=== PATIENT | female | born 1960 | race Caucasian/White ===

== ENCOUNTER 2022-12-11 16:26 | Emergency (ER) | payer OTHER, SELFPAY ==
[2022-12-11 16:28] VITALS: BP 146/65; PULSE 57; RESP 16; TEMP 36.6; O2SAT 98; BMI 31.3
--- NOTE | 2022-12-11 16:33 | DI.RAD.S_ITS ---
PROCEDURE: XR SHOULDER RT MIN 2V INDICATIONS: pain after fall TECHNIQUE: Three views of the right shoulder. COMPARISON: None. FINDINGS: Bones: Comminuted fracture of the right humeral head and neck. Underlying degenerative changes of the glenohumeral joint. Soft tissues: No suspicious soft tissue calcifications. IMPRESSION: Comminuted fracture of the right humeral head and neck. Dictated by: Graeme Akins M.D. on 12/11/2022 at 16:31 Approved by: Graeme Akins M.D. on 12/11/2022 at 16:32
--- NOTE | 2022-12-11 16:33 | ED.GENADULT ---
HPI - General Adult General Chief complaint: Extremity Injury, Upper Stated complaint: GLF ON RIGHT SHOULDER Time Seen by Provider: 12/11/22 16:30 Source: patient Mode of arrival: Ambulatory Limitations: no limitations History of Present Illness HPI narrative: Patient is a 62-year-old female here for evaluation for right shoulder injury. Patient states that prior to arrival she tripped and fell and landed on an outstretched arm. States she jammed her right shoulder. She did not hit her head. No loss of consciousness. She reports no other discomfort except her right shoulder. Her right elbow and right wrist are unremarkable. No other injuries from the event. Related Data Previous Rx's Medication Instructions Recorded hydrocodone 5 mg-acetaminophen 325 1 tab PO Q6H PRN pain #20 tabs 12/11/22 mg tablet Review of Systems Constitutional Constitutional: Reports system reviewed and no additional complaints, except as documented Musculoskeletal Musculoskeletal: Reports system reviewed and no additional complaints, except as documented Integumentary/Breasts Skin/Breast: Reports system reviewed and no additional complaints, except as documented Neurologic Neurologic: Reports system reviewed and no additional complaints, except as documented Hematologic/Lymphatic On Anticoagulants: No Patient History Social History Smoking Status: Never smoker Exam Initial Vital Signs Initial Vital Signs: Vital Signs Temperature 97.9 F 12/11/22 16:28 Pulse Rate 57 L 12/11/22 16:28 Respiratory Rate 16 12/11/22 16:28 Blood Pressure 146/65 H 12/11/22 16:28 Pulse Oximetry 98 12/11/22 16:28 Oxygen Delivery Method Room Air 12/11/22 16:28 Cardio Pulses: radial pulses present on the right Back/Spine/Pelvis Cervical Spine: No cervical spinal tenderness Skin General: no rashes or lesions noted Neuro Sensory Exam: no sensory deficits noted Extrem Other: Right wrist and right elbow unremarkable. Patient has discomfort with palpation of the right shoulder will not move the right shoulder secondary to the discomfort. Procedures Orthopedic Splinting/Casting Injury #1: Side: right Upper Extremity Injury Location: shoulder Upper Extremity Immobilizer: sling/shoulder immobilizer Post splinting neuro exam: intact Post splinting vascular exam: intact Placed by: Nursing Course Orders Ordered: ED Orders 12/11/22 16:33 XR shoulder RT min 2V Stat Discontinued Medications Hydrocodone Bitart/Acetaminophen (Hydrocodone/Acet 5/325 Tablet) 1 tab PO NOW ONE Stop: 12/11/22 16:34 Last Admin: 12/11/22 16:36 Dose: 1 tab Documented By: [facility] Vital Signs Vital signs: Vital Signs - 8 hr 12/11/22 16:28 Temperature 97.9 F Pulse Rate 57 L Respiratory Rate 16 Blood Pressure 146/65 H Pulse Oximetry 98 Oxygen Delivery Method Room Air Medical Decision Making Imaging Data Extremity x-ray #1: My Impression: Right shoulder x-ray Proximal humerus fracture, no dislocations Radiologist's Impression: PROCEDURE:? XR SHOULDER RT MIN 2V ? INDICATIONS:? pain after fall ? TECHNIQUE:? Three views of the right shoulder. ? COMPARISON:? None. ? FINDINGS:? ? Bones:? Comminuted fracture of the right humeral head and neck.? Underlying degenerative changes of the glenohumeral joint. ? Soft tissues:? No suspicious soft tissue calcifications.? ? IMPRESSION:? Comminuted fracture of the right humeral head and neck. MDM Narrative Medical decision making narrative: Patient is neurovascularly intact. X-ray shows an impaction of the right proximal humerus. No dislocations. She was placed in a sling for her comfort. Was sent home with pain medication and also instructions for follow-up with Orthopedic surgery. No other injuries from the event. Discharge Plan Departure Patient Disposition: Home Clinical Impression: Fracture of proximal humerus Instructions: How to Use a Sling, DI for Shoulder Fracture Activity Restrictions/Additional Instructions: The sling is for your comfort. You can take it off to shower and when your sitting at home and also to do the pendulum swings like we discussed. Contact the orthopedic doctors at the number provided below for a follow-up. Also contact your primary doctor as your most likely going to need physical therapy. Return to the emergency department for new or worsening symptoms. Prescriptions: New hydrocodone-acetaminophen 5-325 mg tablet 1 tab PO Q6H PRN (Reason: pain) Qty: 20 0RF Referrals: Shy Savage MD [Physician] - Stand Alone Forms: Patient Portal/API
[2022-12-11] MEDS: HYDROCODONE/ACET 5/325 TABLET 1 TAB PO (16:36)
[2022-12-11 17:30] VITALS: BP 127/58; PULSE 52; RESP 16; O2SAT 99
== END 2022-12-11 17:30 | disposition home or self-care (01) ==
PROVIDERS: Emergency Provider Emergency Medicine
DX: S42.201A Unspecified fracture of upper end of right humerus, initial encounter for closed fracture (principal); W01.0XXA Fall on same level from slipping, tripping and stumbling without subsequent striking against object, initial encounter
CPT/HCPCS: 73030; 99283; 99284